=== PATIENT | female | born 1990 | race Two or more races ===

== ENCOUNTER → 2017-02-26 | Outpatient (CLI) | payer OTHER ==
[~2017-02-26] MED LIST: ACET120S PO
--- NOTE | 2017-02-26 16:53 | REP ---
Clinical: Anatomical evaluation. Comparison: 02/05/2017 . Findings: Examination demonstrates a single live intrauterine in cephalic presentation. motion is identified by technologist. Placenta is noted anteriorly and grade zero without evidence for placenta previa or abruption. Amniotic fluid volume is normal. Cervix measures 3.3 cm in length and appears closed. No evidence for nuchal cord. Gestational age by LMP 19 weeks 5 days. Gestational age by current measurements 18 weeks 6 days with DEANA 07/24/2017 . FHR equals 153 beats per minute. BPD 4.2 cm 18 weeks 5 days HC 16.0 cm 18 weeks 6 days AC 13.5 cm 19 weeks 0 days FL 3.0 cm 19 weeks 2 days HL 2.7 cm 18 weeks 4 days HC/AC ratio 1.19 Estimated weight 272 grams ( 56th percentile). Anatomical assessment demonstrates normal structures including cranium, choroid plexus, cavum, cerebellum/posterior fossa, facial features, lungs, four-chamber heart/ventricular outflow tracts, diaphragm, stomach, cord insertion/three-vessel cord, kidneys/bladder, and extremities. Impression: 1. Single live intrauterine in cephalic presentation demonstrating appropriate estimated weight as compared to dates. 2. Images of the spine are limited due to positioning. Anatomical assessment is otherwise complete and normal. 3. Technologist documents "low-lying umbilical cord ". Signed by Eduardo Ingram MD 02/26/2017 04:45 P
== END ==
LOC: M LRY 14:04
PROVIDERS: ATTEND Nurse Practitioner Women's Health
DX: Z36 Encounter for antenatal screening of mother (principal); Z3A.18 18 weeks gestation of pregnancy

== ENCOUNTER → 2018-03-13 | Outpatient (REF) | payer OTHER | LOC: M SFHCLERA 09:38 | DX: R30.0 Dysuria (principal) ==